=== PATIENT | female | born 1955 | race Caucasian/White ===

== ENCOUNTER 2017-02-21 17:32 | Emergency (ER) | payer OTHER ==
[2017-02-21 17:41] VITALS: RESP 18; TEMP 97.9
--- NOTE | 2017-02-21 18:24 | CPEKG ---
Heart Rate: 62 RR Interval: 968 P-R Interval: 172 QRSD Interval: 110 QT Interval: 424 QTC Interval: 431 P [place]: 16 QRS [place]: 63 T Wave [place]: 38 EKG Severity - ABNORMAL ECG - EKG Impression: SINUS RHYTHM EKG Impression: INCOMPLETE RIGHT BUNDLE BRANCH BLOCK Electronically Signed By: Sheldon Sy 21-Feb-2017 22:58:20
[2017-02-21 19:13] LABS: % IMMATURE GRANULYOCYTES 0.9 % (0.0-1.1); ABSOLUTE IMMATURE GRANULOCYTES 0.02 10^3/uL (0.00-0.10); ADD DIFF? NO; ADD MORPH? NO; ADD SCAN? YES; ATYPICAL LYMPHOCYTE FLAG 190 (0-99); FRAGMENT RBC FLAG 0 (0-99); HEMATOCRIT 37.8 % (38.0-47.0); LEFT SHIFT FLG 10 (0-99); LIPEMIA HEMOLYSIS FLAG 90 (0-99); MEAN CELL HEMOGLOBIN CONCENTR. 34.4 g/dL (32.4-36.7); MEAN CELL VOLUME 84.4 fL (81.5-99.8); MEAN PLATELET VOLUME 9.7 fL (8.7-11.7); PLATELET CLUMPS FLAG 10 (0-99); PLATELET COUNT 210 10^3/uL (150-400); RED BLOOD CELL COUNT 4.48 10^6/uL (4.18-5.33); RED CELL DISTRIBUTION WIDTH 12.2 % (11.5-15.2)
[2017-02-21 19:21] LABS: SCAN NEGATIVE
[2017-02-21] MEDS ORDERED: NS 1,000 ML IV ONE (19:22)
[2017-02-21 19:34] LABS: ANION GAP 13 mEq/L (8-16); CALCIUM 8.5 mg/dL (8.5-10.4); CARBON DIOXIDE 28 mEq/l (22-31); CHLORIDE 99 mEq/L (97-110); CREATININE 0.6 mg/dL (0.6-1.0); GLOMERULAR FILTRATION RATE > 60; GLUCOSE 83 mg/dL (70-100); POTASSIUM 4.5 mEq/L (3.5-5.2); SODIUM 140 mEq/L (134-144)
[2017-02-21] MEDS ORDERED: ALBUTEROL INH PREPACK MDI TAKEHOME ONE (20:04)
--- NOTE | 2017-02-21 20:07 | UCPHY ---
H & P Patient Type: New Chief Complaint Nursing Narrative: diagnosed with Bronchitis on Friday, finsihed z-pack, does not feel better. Abdomen tender and nausea. Time Seen by Provider: 02/21/17 18:01 HPI/ROS: 9 days ago this patient presented to a [facility] clinic was diagnosed with a viral illness. She continued to have coughing that worsened in frequency so she presented to her primary care physician on Friday, 5 days prior to this visit was started on Zithromax for bronchitis. She had associated fevers to 102.5 and chills. Her fever resolved 2 days ago. However she has still a feeling of chest congestion along with her ongoing cough came back in for recheck. She also reports feeling mild generalized weakness and a feeling of mild abdominal bloating and loss of appetite. She is accompanied by her . ROS: Again no fevers for 2 days. Fatigue as mentioned in HPI. No other constitutional symptoms. HEENT: Minimal nasal congestion. Her sore throat that she had during the 1st few days of this illness resolved. Pulmonary: No pleuritic pain. No respiratory distress. Cardiovascular: No heart palpitations , chest pain or diaphoresis. GI: She feels mild abdominal pressure in the upper belly that she thinks may be muscular from coughing and very slight bloating. No vomiting. No diarrhea. She reports normal bowel movements. : No symptoms. Musculoskeletal: No significant myalgias and no lower extremity swelling. 10 point ROS is otherwise negative. Source: Patient Exam Limitations: No limitations - Medical/Surgical History PMH: Otherwise healthy Other PMH: denies - Family History Significant Family History: No pertinent family hx - Social History Smoking Status: Never smoked Alcohol Use: Occasionally Drug Use: None - Physical Exam Exam: Her vital signs are normal tonight with exception of mild hypertension with a blood pressure 160/100 on arrival. General Appearance: Alert, no distress. This patient appears clinically well Eyes: Pupils equal and round no pallor or injection. ENT, Mouth: Mucous membranes moist. Respiratory: She has rales at the right base Cardiovascular: Regular rate and rhythm. No murmur gallop rub. No JVD. No peripheral edema Gastrointestinal: Abdomen is soft and nontender, no masses, bowel sounds normal. Neurological: Alert. No focal deficits Skin: Warm and dry, no rashes. Musculoskeletal: Neck is supple nontender. Extremities are symmetrical, full range of motion. Psychiatric: Mood and affect normal DIFFERENTIAL DIAGNOSIS: After history and physical exam differential diagnosis was considered for pneumonia, doubt CHF, interstitial lung disease, bronchitis, pleural effusion Constitutional: Initial Vital Signs Temperature (C) 36.6 C 02/21/17 17:35 Heart Rate 67 02/21/17 17:35 Respiratory Rate 18 02/21/17 17:35 Blood Pressure 160/100 H 02/21/17 17:35 O2 Sat (%) 99 02/21/17 17:35 O2 Delivery Mode Room Air Allergies/Adverse Reactions: No Known Allergies Allergy (Unverified 02/21/17 17:41) Home Medications: Medication Instructions Recorded Adderall 10 MG (*) 02/21/17 Estrogens, Conjugated 02/21/17 Medical Decision Making - Diagnostics EKG Interpretation: 12 lead EKG indication fatigue rule out coronary syndrome or other abnormal findings Sinus rhythm on this EKG rate of 62 performed at 6:29 p.m. Intervals: P R of 172, QRS of 110, QTC of 431 [place]: P of 60, QRS of 63, T of 38 Overall assessment sinus rhythm with right bundle branch block-incomplete. No previous EKGs for comparison. Appreciate no evidence of significant ischemic changes or infarct patterns. Imaging: Chest x-ray: Read by Dr. Us and reviewed by myself-right lower lobe infiltrate ED Course/Re-evaluation: CBC reveals mild leukopenia but no neutropenia. Her venous blood gas is normal. Electrolytes are normal Course: Patient treated with 1 g ceftriaxone. She is also coached with regarding an albuterol inhaler and CPT. Discussion: She just completed Zithromax course in the affected his antibiotics will persist for sometime. I think that her resolution of fever correspond with clearance of the bacteria. She appears clinically well without findings to suggest sepsis other than the initial mild leukopenia the prompted further workup. Will hold on further antibiotics as I think that again the pneumonia has been treated with Zithromax. I do think she has a mild bronchitic component will treat her with an albuterol inhaler. She is given careful precautions to go to the emergency department if she develops fevers, dyspnea, vomiting or any other concerning symptoms. After workup, I do not think she has coronary syndrome or other significant complicating factors. - Data Points Laboratory Results: Laboratory Results 02/21/17 19:00 02/21/17 19:00 02/21/17 02/21/17 02/21/17 19:00 19:00 19:00 WBC 2.32 10^3/uL L 10^3/uL (3.80-9.50) RBC 4.48 10^6/uL 10^6/uL (4.18-5.33) Hgb 13.0 g/dL g/dL (12.6-16.3) Hct 37.8 % L % (38.0-47.0) MCV 84.4 fL fL (81.5-99.8) MCH 29.0 pg pg (27.9-34.1) MCHC 34.4 g/dL g/dL (32.4-36.7) RDW 12.2 % % (11.5-15.2) Plt Count 210 10^3/uL 10^3/uL (150-400) MPV 9.7 fL fL (8.7-11.7) Neut % (Auto) 55.2 % % (39.3-74.2) Lymph % (Auto) 32.8 % % (15.0-45.0) [place] % (Auto) 10.3 % % (4.5-13.0) Eos % (Auto) 0.4 % L % (0.6-7.6) Baso % (Auto) 0.4 % % (0.3-1.7) Nucleat RBC Rel Count 0.0 % % (0.0-0.2) Absolute Neuts (auto) 1.28 10^3/uL L 10^3/uL (1.70-6.50) Absolute Lymphs (auto) 0.76 10^3/uL L 10^3/uL (1.00-3.00) Absolute Monos (auto) 0.24 10^3/uL L 10^3/uL (0.30-0.80) Absolute Eos (auto) 0.01 10^3/uL L 10^3/uL (0.03-0.40) Absolute Basos (auto) 0.01 10^3/uL L 10^3/uL (0.02-0.10) Absolute Nucleated RBC 0.00 10^3/uL 10^3/uL (0-0.01) Immature Gran % 0.9 % % (0.0-1.1) Immature Gran # 0.02 10^3/uL 10^3/uL (0.00-0.10) VBG Lactic Acid 1.1 mmol/L mmol/L (0.7-2.1) Sodium 140 mEq/L mEq/L (134-144) Potassium 4.5 mEq/L mEq/L (3.5-5.2) Chloride 99 mEq/L mEq/L (97-110) Carbon Dioxide 28 mEq/l mEq/l (22-31) Anion Gap 13 mEq/L mEq/L (8-16) BUN 11 mg/dL mg/dL (7-23) Creatinine 0.6 mg/dL mg/dL (0.6-1.0) Estimated GFR > 60 Glucose 83 mg/dL mg/dL (70-100) Calcium 8.5 mg/dL mg/dL (8.5-10.4) Medications Given: Discontinued Medications Albuterol Sulfate (Proventil Inh Prepack) 1 mdi TAKEHOME EDNOW ONE Stop: 02/21/17 20:05 Last Admin: 02/21/17 20:10 Dose: 1 mdi Ceftriaxone Sodium 1 gm/ (Sodium Chloride) 100 mls @ 200 mls/hr IV EDNOW ONE PRN Reason: Protocol Stop: 02/21/17 19:51 Last Admin: 02/21/17 20:26 Dose: 100 mls Sodium Chloride (Ns) 1,000 mls @ 0 mls/hr IV ONCE ONE PRN Reason: Wide Open Stop: 02/21/17 19:23 Last Admin: 02/21/17 19:25 Dose: 1,000 mls Departure - Departure Disposition: Home, Routine, Self-Care Clinical Impression: Community acquired pneumonia Condition: Good Instructions: Community Acquired Pneumonia (ED) Additional Instructions: Diagnosis: Community-acquired pneumonia Plan: Albuterol inhaler for cough, wheeze or shortness of breath Chest CPT-thumping on back as described to help bring up consolidation Humidifier you received an additional IV dose of antibiotic-ceftriaxone tonight. He completed an appropriate course of Zithromax antibiotic with resolution of your fever. We will hold on further antibiotics at this time. Go to the emergency department for fevers, shortness of breath, lightheadedness , vomiting or any other concerns Referrals: MANJULA REA [Primary Care Provider] - As per Instructions - PQRS PQRS Measurement: 134: Depression screening and followup, PRIME MD-PHQ2 (12 years and older) Over the last 2 weeks, how often have you been bothered by any of the following problems? 1. Feeling down, depressed, or hopeless? 2. Little interest or pleasure in doing things? Patient answered no to both 1 and 2 130: Documentation of medications. Reviewed all patient medications, doses, route and frequency. 226: Do you smoke? [No.] 47: 65 and older: Advanced care planning. Patient designates surrogate decision maker as spouse 51: 18 years old and older with diagnosis of COPD, spirometry performance. NA 52: 18 years old and older with COPD and symptoms of COPD or FEV1<60% predicted prescribed a B Agonist. NA
[2017-02-21 21:15] VITALS: BP 157/99; PULSE 68; O2SAT 96
== END 2017-02-21 21:00 | disposition home or self-care (01) ==
LOC: CED 17:32
DX: J18.9 Pneumonia, unspecified organism (principal)
CPT/HCPCS: 71020-PO; 80048-PO; 83605-PO; 85025-PO; 93010-PO; 96361-PO; 96365-PO; 99204-PO; G0463-PO; J0696